=== PATIENT | female | born 1975 | race African-American/Black ===

== ENCOUNTER 2018-07-12 22:18 | Emergency (ER) | payer OTHER ==
[~2018-07-12] VITALS: Ht 177.8 cm; Wt 72.6 kg
[2018-07-12] MEDS ORDERED: APAP650 PO (23:03)
[2018-07-12 23:07] VITALS: BP 121/80
== END 2018-07-12 23:09 | disposition home or self-care (01) ==
LOC: ER 22:18
DX: G89.29 Other chronic pain (principal); M25.572 Pain in left ankle and joints of left foot; M25.571 Pain in right ankle and joints of right foot

== ENCOUNTER 2018-08-28 02:40 | Emergency (ER) | payer OTHER ==
[~2018-08-28] VITALS: Ht 177.8 cm; Wt 74.8 kg
[~2018-08-28 02:40] MED LIST: APAP650 PO
[2018-08-28 03:23] LABS: URINE BILIRUBIN NEGATIVE (Negative); URINE BLOOD TRACE (Negative); URINE CLARITY CLEAR; URINE COLOR YELLOW; URINE GLUCOSE-RANDOM* NEGATIVE (Negative); URINE KETONES NEGATIVE (Negative); URINE NITRITE-REFLEX NEGATIVE (Negative); URINE PROTEIN (DIPSTICK) NEGATIVE (Negative); URINE SPECIFIC GRAVITY >= 1.030 (1.005-1.035); URINE UROBILINOGEN 0.2 E.U./dl (0.2-1.0)
[2018-08-28 03:50] LABS: URINE LEUKOCYTES-REFLEX 1+ (Negative)
[2018-08-28 03:51] LABS: SQUAMOUS 4-10 Moderate /LPF (0-3)
[2018-08-28 03:52] LABS: BACTERIA-REFLEX 1-9 Few /HPF (None Seen); CASTS None Seen /LPF (None Seen); CRYSTALS None Seen /LPF (None Seen); MUCUS 0-3 Light strn/LPF (None Seen); URINE RBC 0-2 Rare /HPF (0-2); URINE WBC-REFLEX 6-15 Few /HPF (0-5)
[2018-08-28] MEDS ORDERED: TYLENOL ARTHRI650 MG PO (03:56)
[2018-08-28 04:16] VITALS: BP 138/89
== END 2018-08-28 04:16 | disposition home or self-care (01) ==
LOC: ER 02:40
PROVIDERS: Emergency Medicine
DX: M54.9 Dorsalgia, unspecified (principal); F17.210 Nicotine dependence, cigarettes, uncomplicated

== ENCOUNTER 2018-10-22 02:10 | Emergency (ER) | payer OTHER ==
[~2018-10-22] VITALS: Ht 175.3 cm; Wt 78.5 kg
[~2018-10-22 02:10] MED LIST changes: +TYLENOL ARTHRI650 MG PO
[2018-10-22 02:20] VITALS: BP 135/95
[2018-10-22] MEDS ORDERED: TYLENOL325 MG PO (02:36)
== END 2018-10-22 02:58 | disposition home or self-care (01) ==
LOC: ER 02:10
DX: M25.571 Pain in right ankle and joints of right foot (principal); M25.572 Pain in left ankle and joints of left foot; G89.29 Other chronic pain; F17.210 Nicotine dependence, cigarettes, uncomplicated

== ENCOUNTER 2018-11-12 03:59 | Emergency (ER) | payer OTHER ==
[~2018-11-12] VITALS: Ht 177.8 cm; Wt 78.5 kg
[~2018-11-12 03:59] MED LIST changes: +TYLENOL325 MG PO
[2018-11-12 04:05] VITALS: BP 175/93
[2018-11-12 04:27] LABS: URINE BILIRUBIN NEGATIVE (Negative); URINE BLOOD 1+ (Negative); URINE CLARITY CLEAR; URINE COLOR YELLOW; URINE GLUCOSE-RANDOM* NEGATIVE (Negative); URINE KETONES NEGATIVE (Negative); URINE LEUKOCYTES-REFLEX TRACE (Negative); URINE NITRITE-REFLEX NEGATIVE (Negative); URINE PROTEIN (DIPSTICK) TRACE (Negative); URINE SPECIFIC GRAVITY 1.025 (1.005-1.035); URINE UROBILINOGEN 0.2 E.U./dl (0.2-1.0)
[2018-11-12 04:39] LABS: BACTERIA-REFLEX 1-9 Few /HPF (None Seen); CASTS None Seen /LPF (None Seen); CRYSTALS None Seen /LPF (None Seen); MUCUS 0-3 Light strn/LPF (None Seen); SQUAMOUS >10 Many /LPF (0-3); URINE RBC 0-2 Rare /HPF (0-2); URINE WBC-REFLEX 0-5 Rare /HPF (0-5)
== END 2018-11-12 04:57 | disposition home or self-care (01) ==
LOC: ER 03:59
PROVIDERS: Emergency Medicine
DX: R10.30 Lower abdominal pain, unspecified (principal); R11.0 Nausea; F17.210 Nicotine dependence, cigarettes, uncomplicated

== ENCOUNTER 2018-12-25 01:21 | Emergency (ER) | payer OTHER ==
[~2018-12-25] VITALS: Ht 175.3 cm; Wt 77.1 kg
[2018-12-25 01:24] VITALS: BP 111/84
[2018-12-25] MEDS ORDERED: APAP650 PO (06:18)
== END 2018-12-25 06:27 | disposition home or self-care (01) ==
LOC: ER 01:21
DX: G89.29 Other chronic pain (principal); M79.604 Pain in right leg; M79.605 Pain in left leg; F17.210 Nicotine dependence, cigarettes, uncomplicated

== ENCOUNTER 2019-02-12 19:07 | Emergency (ER) | payer OTHER ==
[~2019-02-12] VITALS: Ht 177.8 cm; Wt 72.6 kg
[2019-02-12 19:08] VITALS: BP 130/81
[2019-02-12] MEDS ORDERED: IBUPROFEN 600600 M1 PO (19:34)
== END 2019-02-12 19:43 | disposition home or self-care (01) ==
LOC: ER 19:07
DX: S80.211A Abrasion, right knee, initial encounter (principal); F17.210 Nicotine dependence, cigarettes, uncomplicated; X58.XXXA Exposure to other specified factors, initial encounter; Y93.89 Activity, other specified; Y92.89 Other specified places as the place of occurrence of the external cause; Y99.8 Other external cause status

== ENCOUNTER 2019-03-06 01:34 | Emergency (ER) | payer OTHER ==
[~2019-03-06] VITALS: Ht 175.3 cm; Wt 77.1 kg
[~2019-03-06 01:34] MED LIST changes: +IBUPROFEN 600600 M1 PO
[2019-03-06 01:58] VITALS: BP 105/68
== END 2019-03-06 07:20 | disposition home or self-care (01) ==
LOC: ER 01:34
DX: L02.01 Cutaneous abscess of face (principal); F17.210 Nicotine dependence, cigarettes, uncomplicated

== ENCOUNTER 2019-03-14 08:13 | Emergency (ER) | payer OTHER ==
[~2019-03-14] VITALS: Ht 177.8 cm; Wt 72.6 kg
[2019-03-14 10:22] LABS: BASOPHILS 0.3 % (0.0-2.0); EOSINOPHILS 1.8 % (0.0-3.0); HEMATOCRIT 30.5 % (37.0-47.0); LYMPHOCYTES 33.9 % (24.0-44.0); MCH 31.4 pg (26.0-34.0); MCHC 32.8 g/dL (28.0-37.0); MCV 95.7 fL (80.0-100.0); MONOCYTES 10.4 % (1.0-8.0); PLATELET COUNT 449 thou/uL (150-400); POLYS 53.6 % (36.0-66.0); RBC 3.19 mil/uL (4.20-5.00); RDW 16.6 % (10.5-14.5); WBC 5.5 thou/uL (4.0-11.0)
[2019-03-14 10:32] LABS: CALCIUM 8.9 mg/dL (8.5-10.1); CREATININE 0.8 mg/dL (0.6-1.0)
[2019-03-14 10:37] LABS: ALBUMIN 3.4 g/dL (3.4-5.0); TOTAL BILIRUBIN 0.3 mg/dL (<0.1-1.0); TOTAL PROTEIN 7.9 g/dL (6.4-8.2)
[2019-03-14] MEDS ORDERED: CLINDAMYCIN HC300 MG PO (11:17)
[2019-03-14] MEDS ORDERED: NAPROSYN500 MG PO (11:17)
[2019-03-14] MEDS ORDERED: TRAMADOL 50 MG50 MG PO (11:24)
[2019-03-14 11:37] VITALS: BP 160/91
== END 2019-03-14 11:40 | disposition home or self-care (01) ==
LOC: ER 08:13
PROVIDERS: Emergency Medicine
DX: K04.7 Periapical abscess without sinus (principal); L03.211 Cellulitis of face; F17.210 Nicotine dependence, cigarettes, uncomplicated

== ENCOUNTER 2019-05-16 18:31 | Emergency (ER) | payer OTHER ==
[~2019-05-16] VITALS: Ht 177.8 cm; Wt 79.4 kg
[~2019-05-16 18:31] MED LIST changes: +CLINDAMYCIN HC300 MG PO; +NAPROSYN500 MG PO; +TRAMADOL 50 MG50 MG PO
[2019-05-16 18:32] VITALS: BP 141/94
== END 2019-05-16 19:17 | disposition home or self-care (01) ==
LOC: ER 18:31
DX: M54.5 Low back pain (principal); M54.6 Pain in thoracic spine; G89.29 Other chronic pain; F17.210 Nicotine dependence, cigarettes, uncomplicated

== ENCOUNTER 2019-06-08 00:37 | Emergency (ER) | payer OTHER ==
[~2019-06-08] VITALS: Ht 177.8 cm; Wt 74.8 kg
[2019-06-08 01:18] VITALS: BP 119/76
== END 2019-06-08 01:20 | disposition home or self-care (01) ==
LOC: ER 00:37
DX: G89.29 Other chronic pain (principal); F17.210 Nicotine dependence, cigarettes, uncomplicated; Z79.899 Other long term (current) drug therapy